=== PATIENT | female | born 1935 | race Caucasian/White ===

== ENCOUNTER 2018-04-06 18:56 | Inpatient (IN) ==
--- NOTE | 2018-04-06 19:31 | Emergency Department Note ---
Disposition Clinical Impression: Thoracic back pain Disposition: Still a Patient Condition: Fair Referrals: Elise Barry MD [Primary Care Provider] - Forms: ED Satisfaction Letter General Adult HPI - General Chief complaint: ED Back Pain/Injury Stated complaint: Fall Time Seen by Provider: 04/06/18 18:58 Source: patient, EMS Limitations: no limitations, altered mental status Nursing Notes Reviewed: Yes Vital Signs Reviewed: Yes - History of Present Illness HPI Narrative: 82 year old female presents for fall. Sister in law was helping her stand, lost control and patient fell backward. Patient states she hurt her back. Does not take a blood thinner. Denies any lightheadedness or dizziness before fall. Denies any chest pain or shortness of breath before fall. Denies loss of consciousness. Denies hitting her head. Denies headache, neck pain. reports that patient is unsteady on her feet and will fall backward if someone doesn't have good control of her. states that patient is not confused. Patient states that the middle of her mid-back is achy and sore /. Denies new muscle weakness or loss of sensation. Pain Scale: 10 - Related Data Previous Rx's Medication Instructions Recorded RX: Promethazine [Phenergan] 25 mg PO Q6HR PRN #20 tablet 06/14/15 RX: Ondansetron ODT [Zofran ODT] 4 mg SL Q6HR #10 tab.rapdis 08/13/15 LORazepam [Ativan] 1 mg PO BID PRN #60 tablet 10/05/15 RX: Artificial Tears SOLN [Akwa 1 drop BOTH EYES BID #1 bottle 10/05/15 Tears] RX: Gabapentin [Neurontin] 100 mg PO HS #30 capsule 10/05/15 RX: Lisinopril [Zestril] 5 mg PO DAILY tablet 10/05/15 RX: Mirtazapine [Remeron] 15 mg PO HS #30 tablet 10/05/15 Allergies Allergy/AdvReac Type Severity Reaction Status Date / Time Penicillins AdvReac See Verified 09/30/15 13:10 Comments Sulfa (Sulfonamide AdvReac See Verified 09/30/15 13:10 Antibiotics) Comments Constitutional: Denies: fever, chills Eyes: Denies: eye pain, eye discharge ENT ED: Denies: ear pain, throat pain Cardiovascular: Denies: chest pain, palpitations Respiratory: Denies: cough, dyspnea Gastrointestinal: Denies: abdominal pain, nausea Genitourinary: Denies: urgency, dysuria Musculoskeletal: Reports: back pain. Denies: neck pain Integumentary: Denies: rash, abrasion Neurological: Denies: headache, weakness Past Medical History - Past Medical History Medical history: Reports: fibromyalgia, osteoporosis, other Surgical history: Reports: cholecystectomy, hip replacement Psychiatric history: Reports: anxiety, depression - Social History Smoking Status: Never smoker Smokeless Tobacco Status: No Alcohol use: Reports: none Drug use: Reports: none Physical Exam - General Limitations: no limitations, altered mental status General appearance: in no apparent distress - Head Head exam: atraumatic, normocephalic - Eye Eye exam: Present: normal appearance, PERRL, EOMI - ENT ENT exam: normal oropharynx, mucous membranes moist - Neck Neck exam: Present: normal inspection - Chest Chest inspection: Present: normal inspection - Respiratory Respiratory exam: Present: normal lung sounds bilaterally. Absent: respiratory distress - Cardiovascular Cardiovascular exam: Present: regular rate, normal rhythm - Abdominal Exam Abdominal exam: Present: normal bowel sounds. Absent: Non-Tender - Extremities Exam Extremities exam: Present: normal inspection, other (tremor in feet bilaterally, chronic ). Absent: tenderness, pedal edema, joint swelling - Back Exam Back exam: Present: tenderness (Tender to thoracic spine and paraspinals bilaterally. No tenderness to cervical and lumbar spine. ) - Neurological Exam Neurological exam: Present: alert, oriented X3, CN II-XII intact. Absent: motor sensory deficit (Generalized weakness. Motor strength equal bilaterally. No loss of sensation. Finger nose test normal bilaterally. ) - Psychiatric Psychiatric exam: Present: normal affect, normal mood - Skin Skin exam: Present: warm, dry, intact, normal color, other (Ecchymoses on right arm, present prior to fall. Small abrasion to right dorsal hand. ) Course Course Narrative: 82 year old female presents for thoracic back pain after mechanical fall. History of osteoporosis. Patient is alert and oriented and hemodynamically stable. On exam, there is tenderness to palpation to thoracic spine and paraspinals bilaterally. There is no pain to palpation of cervical and lumbar spine. Will check XR thoracic. - Reevaluation(s) Reevaluation #1: XR thoracic shows age-indeterminate fracture of T12. Will obtain CT thoracic. Patient's pain is not improved with tylenol. Will provide fentanyl and zofran. Time: 20:42 Reevaluation #2: Will sign out to night team. Vital Signs Temperature 99.1 F 04/06/18 18:59 Pulse Rate 110 04/06/18 18:59 Respiratory Rate 16 04/06/18 18:59 Blood Pressure 174/93 04/06/18 18:59 O2 Sat by Pulse Oximetry 97 04/06/18 18:59 Temperature 99.1 F 04/06/18 18:59 Pulse Rate 110 04/06/18 18:59 Respiratory Rate 16 04/06/18 18:59 Blood Pressure 174/93 04/06/18 18:59 O2 Sat by Pulse Oximetry 97 04/06/18 18:59 Oxygen Delivery Oxygen Delivery Room Air Medical Decision Making - Medical Records Medical records reviewed: Yes I reviewed the patient's medical records. - Lab Data Lab results reviewed: Yes I reviewed the patient's lab results. - Radiology Data Radiology results reviewed: Yes I reviewed the patient's radiology results.
--- NOTE | 2018-04-06 19:45 | Emergency Department Note ---
Disposition Clinical Impression: Thoracic back pain Disposition: Still a Patient Condition: Fair Forms: ED Satisfaction Letter General Adult HPI - General Chief complaint: ED Back Pain/Injury Stated complaint: Fall Time Seen by Provider: 04/06/18 18:58 Source: patient, EMS Limitations: no limitations, altered mental status - History of Present Illness Pain Scale: 10 - Related Data Previous Rx's Medication Instructions Recorded RX: Promethazine [Phenergan] 25 mg PO Q6HR PRN #20 tablet 06/14/15 RX: Ondansetron ODT [Zofran ODT] 4 mg SL Q6HR #10 tab.rapdis 08/13/15 LORazepam [Ativan] 1 mg PO BID PRN #60 tablet 10/05/15 RX: Artificial Tears SOLN [[place]wa 1 drop BOTH EYES BID #1 bottle 10/05/15 Tears] RX: Gabapentin [Neurontin] 100 mg PO HS #30 capsule 10/05/15 RX: Lisinopril [Zestril] 5 mg PO DAILY tablet 10/05/15 RX: Mirtazapine [Remeron] 15 mg PO HS #30 tablet 10/05/15 Allergies Allergy/AdvReac Type Severity Reaction Status Date / Time Penicillins AdvReac See Verified 09/30/15 13:10 Comments Sulfa (Sulfonamide AdvReac See Verified 09/30/15 13:10 Antibiotics) Comments Constitutional: Denies: fever, chills Eyes: Denies: eye pain, eye discharge ENT ED: Denies: ear pain, throat pain Cardiovascular: Denies: chest pain, palpitations Respiratory: Denies: cough, dyspnea Gastrointestinal: Denies: abdominal pain, nausea Genitourinary: Denies: urgency, dysuria Musculoskeletal: Reports: back pain. Denies: neck pain Integumentary: Denies: rash, abrasion Neurological: Denies: headache, weakness Past Medical History - Past Medical History Medical history: Reports: fibromyalgia, osteoporosis, other Surgical history: Reports: cholecystectomy, hip replacement Psychiatric history: Reports: anxiety, depression - Social History Smoking Status: Never smoker Smokeless Tobacco Status: No Alcohol use: Reports: none Drug use: Reports: none Physical Exam - General Limitations: no limitations, altered mental status General appearance: in no apparent distress Course Vital Signs Temperature 99.1 F 04/06/18 18:59 Pulse Rate 110 04/06/18 18:59 Respiratory Rate 16 04/06/18 18:59 Blood Pressure 174/93 04/06/18 18:59 O2 Sat by Pulse Oximetry 97 04/06/18 18:59 Temperature 99.1 F 04/06/18 18:59 Pulse Rate 105 04/06/18 20:12 Respiratory Rate 16 04/06/18 20:12 Blood Pressure 177/100 04/06/18 20:12 O2 Sat by Pulse Oximetry 98 04/06/18 20:12 Oxygen Delivery Oxygen Delivery Room Air Attestation Statement - Attestation Attestation: I examined this patient and my medical decision-making was reviewed with the STUDENT AMBASSADOR/PA/Advanced Practice Nurse/Resident Physician. I agree with the documented findings, disposition and treatment plan as described except to the extent set forth below. I did speak the patient and did speak with the paramedics and I did see the patient immediately upon arrival the patient presents after she had a mechanical fall. This was not a syncopal episode. Does have thoracic pain and this will be further evaluated with imaging. Otherwise bright and alert and in no distress. 193
[2018-04-06] MEDS ORDERED: *HR* FentaNYL (PF) 100 MCG/2 ML VIAL IVP ONE (20:39)
[2018-04-06] MEDS ORDERED: Ondansetron 4 MG/2 ML VIAL IVP ONE (20:40)
--- NOTE | 2018-04-06 22:30 | Emergency Department Note ---
Disposition Clinical Impression: Thoracic back pain Qualifiers: Chronicity: acute Back pain laterality: midline Qualified Code(s): M54.6 - Pain in thoracic spine Thoracic compression fracture Qualifiers: Encounter type: initial encounter Fracture type: closed Qualified Code(s): S22.000A - Wedge compression fracture of unspecified thoracic vertebra, initial encounter for closed fracture Disposition: Admitted As Inpatient Condition: Fair Referrals: Elise Barry MD [Primary Care Provider] - Forms: ED Satisfaction Letter Time of Disposition: 22:29 General Adult HPI - General Chief complaint: ED Back Pain/Injury Stated complaint: Fall Time Seen by Provider: 04/06/18 18:58 Source: patient, EMS Limitations: no limitations, altered mental status - History of Present Illness Pain Scale: 10 - Related Data Previous Rx's Medication Instructions Recorded Promethazine [Phenergan] 25 mg PO Q6HR PRN #20 tablet 06/14/15 Ondansetron ODT [Zofran ODT] 4 mg SL Q6HR #10 tab.rapdis 08/13/15 Artificial Tears SOLN [Akwa Tears] 1 drop BOTH EYES BID #1 bottle 10/05/15 Gabapentin [Neurontin] 100 mg PO HS #30 capsule 10/05/15 LORazepam [Ativan] 1 mg PO BID PRN #60 tablet 10/05/15 Lisinopril [Zestril] 5 mg PO DAILY tablet 10/05/15 Mirtazapine [Remeron] 15 mg PO HS #30 tablet 10/05/15 Allergies Allergy/AdvReac Type Severity Reaction Status Date / Time Penicillins AdvReac See Verified 09/30/15 13:10 Comments Sulfa (Sulfonamide AdvReac See Verified 09/30/15 13:10 Antibiotics) Comments Constitutional: Denies: fever, chills Eyes: Denies: eye pain, eye discharge ENT ED: Denies: ear pain, throat pain Cardiovascular: Denies: chest pain, palpitations Respiratory: Denies: cough, dyspnea Gastrointestinal: Denies: abdominal pain, nausea Genitourinary: Denies: urgency, dysuria Musculoskeletal: Reports: back pain. Denies: neck pain Integumentary: Denies: rash, abrasion Neurological: Denies: headache, weakness Past Medical History - Past Medical History Medical history: Reports: fibromyalgia, osteoporosis, other Surgical history: Reports: cholecystectomy, hip replacement Psychiatric history: Reports: anxiety, depression - Social History Smoking Status: Never smoker Smokeless Tobacco Status: No Alcohol use: Reports: none Drug use: Reports: none Physical Exam - General Limitations: no limitations, altered mental status General appearance: in no apparent distress Course Vital Signs Temperature 99.1 F 04/06/18 18:59 Pulse Rate 110 04/06/18 18:59 Respiratory Rate 16 04/06/18 18:59 Blood Pressure 174/93 04/06/18 18:59 O2 Sat by Pulse Oximetry 97 04/06/18 18:59 Temperature 99.1 F 04/06/18 18:59 Pulse Rate 105 04/06/18 20:12 Respiratory Rate 16 04/06/18 20:12 Blood Pressure 177/100 04/06/18 20:12 O2 Sat by Pulse Oximetry 98 04/06/18 20:12 Oxygen Delivery Oxygen Delivery Room Air Medical Decision Making - MDM Narrative Medical decision making narrative: Patient was assigned out to me from Dr. Espinosa. Plan was to follow-up her CT scan of her thoracic spine. At this time, she has pinpoint tenderness along the T11-T12 region of her thoracic spine. She has no focal motor or sensory deficits. CT confirms that she has got a 40% compression fracture of T12 with a 5.5 mm posterior displacement of the superior endplate. I consulted with spine surgery. They will see the patient tomorrow in consultation. She will need to be admitted as she is having problems getting around due to the pain as well as her age and the is worried that she may fall again at home. She does not take blood thinners. She has no focal motor or sensory deficits. Attestation Statement - Attestation Attestation: I examined this patient and my medical decision-making was reviewed with the Resident Physician. I agree with the documented findings, disposition and treatment plan as described except to the extent set forth below.
[2018-04-06 23:23] LABS: Basophils % 0.4 %; Eosinophils % 0.5 %; Hematocrit 39.5 % (35.3-44.9); Hemoglobin 13.5 g/dL (11.5-15.4); Immature Granulocytes % 0.2 % (0-4); Lymphocytes # 1.5 K/mcL (0.6-4.6); Lymphocytes % 18.6 %; Mean Corpuscular HGB Conc 34.2 g/dL (31.6-35.5); Mean Corpuscular Hemoglobin 31.2 pg (28.0-33.3); Mean Corpuscular Volume 91.2 fL (83.0-100.0); Mean Platelet Volume 11.2 fL (9.4-12.4); Monocytes # 0.6 K/mcL (0.0-1.3); Monocytes % 6.8 %; Neutrophils # 6.1 K/mcL (1.6-8.9); Platelet Count 233 K/mcL (140-400); Red Blood Count 4.33 M/mcL (3.82-4.97); Red Cell Distribution Width 13.2 % (11.5-14.5); Segmented Neutrophils % 73.5 %
[2018-04-06 23:31] LABS: INR 1.1; Prothrombin Time 12.3 Seconds (9.4-12.1)
[2018-04-06 23:38] LABS: BUN/Creatinine Ratio 34 (6-26); Blood Urea Nitrogen 20 mg/dL (8-23); Calcium 9.2 mg/dL (8.6-10.3); Carbon Dioxide 23 mEq/L (23-29); Chloride 104 mEq/L (98-107); Glucose 107 mg/dL (70-105); Osmolality,Calculated 281 (280-300); Potassium 4.2 mEq/L (3.5-5.1); Sodium 134 mEq/L (136-145); eGFR For Non-African Americans > 60 (> 60)
[2018-04-07] MEDS ORDERED: Naloxone 0.4 MG/ML INJ IVP PRN (00:09)
[2018-04-07] MEDS ORDERED: OXYCODONE Oral CONC 10 MG/0.5 ML ORAL.SYG SL PRN (00:09)
[2018-04-07 03:31] LABS: Bilirubin,Urine Negative (Negative); Blood,Urine Negative (Negative); Clarity,Urine Clear (Clear); Color,Urine Dark Yellow (Yellow); Glucose,Urine (UA) Normal (Normal); Ketones,Urine Negative (Negative); Leukocyte Esterase,Urine Negative (Negative); Nitrite,Urine Negative (Negative); Protein,Urine Trace mg/dL (Neg-Trace); Specific Gravity,Urine 1.024 (1.010-1.025); Urobilinogen,Urine Normal (Normal)
[2018-04-07 03:32] LABS: Bacteria,Urine None Seen per hpf (None-Few); Hyaline Casts,Urine None Seen per lpf (None-Few); Squamous Epithelial Cell,Urine Many per lpf (None-Few); WBC,Urine 0-3 per hpf (0-3)
[2018-04-07] MEDS: 0.9 % Sodium Chloride 1,000 ML IVC SCH ×2 (03:51→17:07)
[2018-04-07] MEDS: Ketorolac 30 MG/ML VIAL IVP PRN (03:51)
[2018-04-07 05:16] LABS: Basophils % 0.6 %; Eosinophils # 0.1 K/mcL (0.0-0.6); Eosinophils % 1.4 %; Hematocrit 40.1 % (35.3-44.9); Hemoglobin 13.7 g/dL (11.5-15.4); Immature Granulocytes % 0.3 % (0-4); Lymphocytes # 1.8 K/mcL (0.6-4.6); Mean Corpuscular HGB Conc 34.2 g/dL (31.6-35.5); Mean Corpuscular Hemoglobin 31.1 pg (28.0-33.3); Mean Corpuscular Volume 90.9 fL (83.0-100.0); Mean Platelet Volume 11.2 fL (9.4-12.4); Monocytes # 0.6 K/mcL (0.0-1.3); Monocytes % 8.1 %; Neutrophils # 4.5 K/mcL (1.6-8.9); Platelet Count 230 K/mcL (140-400); Red Blood Count 4.41 M/mcL (3.82-4.97); Red Cell Distribution Width 13.2 % (11.5-14.5); Segmented Neutrophils % 63.6 %
[2018-04-07 05:35] LABS: Troponin I < 0.03 ng/mL (< 0.04)
[2018-04-07 05:39] LABS: Alanine Aminotransferase 21 Units/L (7-52); Albumin 3.8 g/dL (3.5-5.7); Albumin/Globulin Ratio 1.4 (1.1-2.2); Alkaline Phosphatase 91 Units/L (34-104); Aspartate Amino Transferase 27 Units/L (13-39); BUN/Creatinine Ratio 37 (6-26); Bilirubin,Total 0.7 mg/dL (0.3-1.0); Blood Urea Nitrogen 22 mg/dL (8-23); Calcium 9.1 mg/dL (8.6-10.3); Carbon Dioxide 22 mEq/L (23-29); Chloride 103 mEq/L (98-107); Globulin 2.8 g/dL (2.4-3.5); Glucose 102 mg/dL (70-105); Osmolality,Calculated 286 (280-300); Potassium 4.1 mEq/L (3.5-5.1); Sodium 136 mEq/L (136-145); Total Protein 6.6 g/dL (6.4-8.9); eGFR For Non-African Americans > 60 (> 60)
[2018-04-07] MEDS: *HR* Heparin 5,000 UNIT/ML VIAL SQ SCH ×3 (08:10→23:07)
--- NOTE | 2018-04-07 08:59 | Internal Med History&Physical ---
Date of Encounter: 04/07/18 Time of Encounter: 05:00 Internal Medicine - H&P: HPI Chief complaint: Fall History of present illness: Ms. Martinez is a 82 year old female with past medical history of dementia, hypertension and depression who presents after mechanical fall. Per report, her Sister in law was helping her stand when she lost control and patient fell backward. She denies any lightheadedness, dizziness, or chest pain before fall. Since then she reports mid back pain. Does not take a blood thinner aside from aspirin. Denies loss of consciousness. Denies hitting her head. Denies headache, neck pain. reports that patient is unsteady on her feet and h as a tendency to fall backward if someone doesn't have good control of her. He states that patient is not confused. Patient denies any focal motor or sensory deficits. CT confirms that she has got a 40% compression fracture of T12 with a 5.5 mm posterior displacement of the superior endplate. Spine surgery was consulted in the ED and they will see the patient tomorrow in consultation. Past Med Surg Social Fam HX - Past Medical History Medical history: fibromyalgia, osteoporosis, other Psychiatric history: anxiety, depression - Past Surgical History Surgical History: cholecystectomy, hip replacement Additional surgical history: Unsure of choley. Denies hip replacement - Social History Smoking Status: Never smoker Smokeless Tobacco Status: No Alcohol use: occasionally Drug use: none Internal Medicine - H&P: Meds ARIPiprazole [Abilify] 5 mg PO DAILY 04/06/18 [History] Aspirin [Adult Aspirin] 81 mg PO DAILY 04/06/18 [History] Citalopram Hydrobromide [Citalopram HBr] 30 mg PO DAILY 04/06/18 [History] Losartan Potassium [Cozaar] 50 mg PO DAILY 04/06/18 [History] Megestrol Acetate [Megace] 40 mg PO BID 04/06/18 [History] Pantoprazole Sodium [Protonix] 40 mg PO DAILY 04/06/18 [History] Allergy/AdvReac Type Severity Reaction Status Date / Time Penicillins AdvReac See Verified 09/30/15 13:10 Comments Sulfa (Sulfonamide AdvReac See Verified 09/30/15 13:10 Antibiotics) Comments All Systems PM: A 10-system review of systems was performed and is negative for pertinent findings except as documented above in the HPI. - Constitutional Constitutional: no chills, no fever(s), no night sweats - EENT Eyes: no change in vision, no discharge, no pain, no photophobia Ears: no ear discharge, no ear pain, no tinnitus Nose, mouth and throat: no dysphagia, no nasal discharge, no neck pain, no sore throat - Cardiovascular Cardiovascular ROS IM: no chest pain, no diaphoresis, no dyspnea, no lightheadedness, no palpitations, no syncope - Respiratory Respiratory: no cough, no dyspnea, no wheezing, no excessive phlegm production - Gastrointestinal Gastrointestinal: no abdominal pain, no diarrhea, no hematemesis, no hematochezia, no melena, no nausea, no vomiting - Genitourinary Genitourinary: no change in urinary stream, no dysuria, no flank pain, no hematuria - Musculoskeletal Musculoskeletal ROS IM: no numbness, no tingling - Integumentary Integumentary IM: no rash, no unusual bruising - Neurological Neurological ROS: no confusion, no convulsions, no focal weakness, no numbness, no tingling, no tremor(s) - Hematologic/Lymphatic Hematologic/Lymphatic: no easy bruising - Constitutional Vitals: Temp Pulse Resp BP Pulse Ox 97.5 F L 96 16 161/78 93 04/07/18 06:28 04/07/18 06:28 04/07/18 06:28 04/07/18 06:28 04/07/18 06:28 Exam: General: Alert and oriented 2 lying in bed in no acute distress Skin:Normal color, no rash, no lesions. HEENT:EOM, pupils equal, round and reactive. Cardiovascular:Normal S1 & S2, no rubs, murmurs or gallops. No JVD. Pulse regular. Lungs:Normal breath sounds, no wheezes or crackles. Musculoskeletal: Point tenderness to palpation along the spine at the mid posterior thorax. Abdomen:Soft, non-tender, no rigidity. Extremities:No deformity, no edema or tenderness, no joint swelling or clubbing. Neurological:Normal cognition and motor skills. Pulses:Carotid and radial pulses normal +2. Rest of the physical exam is non contributory Internal Med - H&P Results - Labs CBC & Chem 7: 04/07/18 04:22 04/07/18 04:22 Labs: Short CBC 04/06/18 04/07/18 Range/Units 22:59 04:22 WBC 8.3 7.0 (4.3-11.1) K/mcL Hgb 13.5 13.7 (11.5-15.4) g/dL Hct 39.5 40.1 (35.3-44.9) % Plt Count 233 230 (140-400) K/mcL Neutrophils # 6.1 4.5 (1.6-8.9) K/mcL BMP 04/06/18 04/07/18 22:59 04:22 Sodium 134 L 136 Potassium 4.2 4.1 Chloride 104 103 Carbon Dioxide 23 22 L BUN 20 22 Creatinine 0.59 L 0.59 L Glucose 107 H 102 Calcium 9.2 9.1 Cardiac Enzymes 04/07/18 Range/Units 04:22 Troponin I < 0.03 (< 0.04) ng/mL Liver Function 04/07/18 Range/Units 04:22 Total Bilirubin 0.7 (0.3-1.0) mg/dL AST 27 (13-39) Units/L ALT 21 (7-52) Units/L Alkaline Phosphatase 91 (34-104) Units/L Albumin 3.8 (3.5-5.7) g/dL Urine 04/07/18 Range/Units 03:00 Urine Color Dark Yellow (Yellow) Urine Clarity Clear (Clear) Urine pH 6.0 (5.0-8.0) pH Units Ur Specific [place] 1.024 (1.010-1.025) Urine Protein Trace (Neg-Trace) mg/dL Urine Glucose (UA) Normal (Normal) mg/dL - Impressions ITS Impressions Thoracic Spine X-Ray 04/06/18 19:22 IMPRESSION: 1. Age-indeterminate compression fracture of T12. No significant retropulsion. Spinous alignment is within normal limits. D/ / Paresh Chavis MD / Paresh Chavis MD Interpreting Provider: Paresh Chavis MD Thoracic Spine CT 04/06/18 20:34 IMPRESSION: Superior endplate compression fracture of T12 with approximately 40% loss of vertebral body height. Appearance of the fracture suggests that this is an acute compression fracture. 5.5 mm of posterior displacement of superior endplate fracture fragments causing moderate canal narrowing. Mild multilevel disc degenerative changes. D/ / 04/06/2018 22:12:55 Eugenio Savage MD / luba Interpreting Provider: Eugenio Savage MD - Assessment and plan (1) Thoracic compression fracture Current Visit: Yes Status: Acute Assessment and plan: Patient presents with compression fracture of T12 after mechanical fall. Orthopedic surgery was consulted and will see patient this morning. We will continue with pain management and keep patient nothing by mouth until further evaluation. Qualifiers: Encounter type: initial encounter Fracture type: closed Qualified Code(s): S22.000A - Wedge compression fracture of unspecified thoracic vertebra, initial encounter for closed fracture (2) Depression Current Visit: No Status: Chronic Assessment and plan: Continue home medications Qualifiers: Depression Type: unspecified Qualified Code(s): F32.9 - Major depressive disorder, single episode, unspecified (3) Mild cognitive impairment Current Visit: No Status: Chronic (4) DVT prophylaxis Current Visit: Yes Status: Acute Assessment and plan: Subcutaneous heparin - Time Spent With Patient Total time spent is greater than 50% in coordination of care (as documented) at patient's floor/unit and/or counseling patient:
--- NOTE | 2018-04-07 12:28 | Event Note ---
Date of Encounter: 04/07/18 Time of Encounter: 10:30 H&P reviewed. 82-year-old female with history of osteoporosis is admitted after an episode of mechanical fall. Landed backward and suffered T12 compression fracture with 5.5mm posterior displacement and moderate canal narrowing demonstrated on the imaging studies done overnight. Exam did not reveal any lower limb weakness or numbness. Pain management, we will follow up on orthopedic consults (which was called in from the ED last night). Keep NPO till then.
[2018-04-07] MEDS: ARIPiprazole 5 MG TABLET PO SCH (17:06)
[2018-04-07] MEDS: Aspirin Enteric Coated 81 MG Tablet PO SCH (17:07)
[2018-04-07] MEDS ORDERED: *HR* Metoprolol 5 MG/5 ML VIAL IVP ONE ×3 (18:42→22:53)
[2018-04-07] MEDS ORDERED: *HR* LORazepam 2 MG/ML VIAL IVP ONE (18:42)
--- NOTE | 2018-04-07 19:42 | Pain Management Consultation ---
Date of Encounter: 04/07/18 Time of Encounter: 18:41 Assessment and Plan (1) Compression fracture of T12 vertebra Current Visit: Yes Status: Acute The patient experienced a fall from standing yesterday and CT scan shows compression deformity of T12. Recommend the followin. Oral analgesics. 2. Back bracing with TLSO brace. 3. Physical therapy/occupational therapy consult to ascertain her functional capacity. Her baseline is relatively low functioning, requiring him with support for all activities of daily living. If the patient can sit on the side of the bed, eat, and ambulate to the bathroom with little pain, there is little need for surgery at this moment. 4. recommend discharge to rehabilitation Center if function is at baseline and pain can be easily controlled with oral analgesics and lifestyle modification, finding a comfortable position. 5. I will have my office at her on to my clinic schedule for follow-up in one week so that we can monitor her progress. The assessment and plan as outlined above was discussed with the patient and/or family members who expressed understanding and agreement. All questions were ans wered. History of Present Illness Chief complaint: back pain HPI: Ms. Martinez is a 82 year old female who expressed a fall yesterday. The patient lives at home with her . The patient is not mobile at home but relies on her for all activities of daily living. The patient was in her home. She stood up to ambulate with a rolling walker with family members at her side, and she fell backwards. She expressed a sudden onset of pain in the center of her back. She denied pain traveling into her legs. Pain at the time of the fall was 10/10. Pain now is 0/10 while lying in bed. Pain seems to spread across her lower back just below the bra strap. Pain described as sharp. The patient is comfortable while lying down. She has not attempted to sit up or stand. Past Med Surg Social Fam HX - Past Medical History Medical history: fibromyalgia, osteoporosis, other Psychiatric history: anxiety, depression - Past Surgical History Surgical History: cholecystectomy, hip replacement Additional surgical history: Unsure of choley. Denies hip replacement - Social History Smoking Status: Never smoker Smokeless Tobacco Status: No Alcohol use: occasionally Drug use: none Medications and Allergies ARIPiprazole [Abilify] 5 mg PO DAILY 04/06/18 [History] Aspirin [Adult Aspirin] 81 mg PO DAILY 04/06/18 [History] Citalopram Hydrobromide [Citalopram HBr] 30 mg PO DAILY 04/06/18 [History] Losartan Potassium [Cozaar] 50 mg PO DAILY 04/06/18 [History] Megestrol Acetate [Megace] 40 mg PO BID 04/06/18 [History] Pantoprazole Sodium [Protonix] 40 mg PO DAILY 04/06/18 [History] Allergy/AdvReac Type Severity Reaction Status Date / Time Penicillins AdvReac See Verified 09/30/15 13:10 Comments Sulfa (Sulfonamide AdvReac See Verified 09/30/15 13:10 Antibiotics) Comments Review of Systems - Constitutional Constitutional ROS IM: no photophobia, no phonophobia, no daytime sleepiness, no fever(s), no stops breathing during sleep - EENT Nose, mouth and throat: no headache(s), no neck pain, no neck trauma - Cardiovascular Cardiovascular ROS: no chest pain, no leg edema, no lightheadedness - Respiratory Respiratory: no pain on inspiration, no pain with cough - Gastrointestinal Gastrointestinal: no abdominal pain, no constipation, no diarrhea, no heartburn - Genitourinary Genitourinary ROS: no difficulty urinating, no flank pain, no urinary hesitancy - Musculoskeletal Musculoskeletal ROS: no muscle weakness, no numbness, no radiating pain into limb, no tingling - Integumentary Integumentary: no erythema, no lesions, no swelling - Neurological Neurological ROS: no abnormal gait, no behavioral changes, no focal weakness, no radicular pain - Psychiatric Psychiatric general: no anxiety, no confusion, no depression - Hematologic/Lymphatic Hematologic/Lymphatic pediatric: no easy bleeding, no easy bruising Physical Exam Initial Vital Signs Temp Pulse Resp BP Pulse Ox 99.1 F 110 16 174/93 97 04/06/18 18:59 04/06/18 18:59 04/06/18 18:59 04/06/18 18:59 04/06/18 18:59 - Additional Findings EYES:: pupils equal and round, no myosis. SKIN:: no areas of echymoses or petechiae CARDIOVASCULAR:: no lower limb edema. no palpable cords in calf muscles PULMONARY:: normal respiratory rate GASTROINTESTINAL:: soft, nontender MUSCULOSKELETAL PALPATION:: paraspinous of spinous processes is nontender in thoracolumbar spine no pain with percussion of spine ROM:: good ROM with turning in bed at thoracolumbar junction STRENGTH:: RIGHT knee extension 4/5 :: LEFT knee extension 4/5 RIGHT knee flexion 4/5 :: LEFT knee flexion 4/5 RIGHT ankle dorsiflexion 5/5 :: LEFT ankle dorsiflexion 5/5 RIGHT ankle plantarflexion 4/5 :: LEFT ankle plantarflexion 5/5 RIGHT great toe dorsiflexion 3/5 :: LEFT great toe dorsiflexion 5/5 RIGHT great toe plantarflexion 4/5 :: LEFT great toe plantarflexion 5/5 NEUROLOGIC SENSATION:: hypesthesia is not noted in lower extremity dermatomes. PSYCHIATRIC:: ORIENTATION:: awake and alert. INSIGHT:: good awareness of illness. oriented to person. AFFECT:: pleasant. Radiology Images Viewed By Me:: March 2018 CT scan of the thoracic spine shows a T12 compression deformity involving the junction between the pedicle and vertebral body on the right. There is 5 mm retropulsion of superior endplate into the central canal. white count nml now. I have reviewed and agree with information documented in the scribed documentation, ROS, patient medications, allergies, medical history, surgical history, social history, and family history. Results - Labs 04/07/18 04:22 04/07/18 04:22 Abnormal lab results PT 12.3 Seconds (9.4-12.1) H 04/06/18 22:59 Carbon Dioxide 22 mEq/L (23-29) L 04/07/18 04:22 Creatinine 0.59 mg/dL (0.60-1.20) L 04/07/18 04:22 BUN/Creatinine Ratio 37 (6-26) H 04/07/18 04:22 Urine Microscopic RBC 3-5 per hpf (0-3) H 04/07/18 03:00 Ur Squamous Epith Cells Many per lpf (None-Few) H 04/07/18 03:00 Diabetes panel 04/06/18 04/07/18 Range/Units 22:59 04:22 Sodium 134 L 136 (136-145) mEq/L Potassium 4.2 4.1 (3.5-5.1) mEq/L Chloride 104 103 (98-107) mEq/L Carbon Dioxide 23 22 L (23-29) mEq/L BUN 20 22 (8-23) mg/dL Creatinine 0.59 L 0.59 L (0.60-1.20) mg/dL Glucose 107 H 102 (70-105) mg/dL Calcium 9.2 9.1 (8.6-10.3) mg/dL AST 27 (13-39) Units/L ALT 21 (7-52) Units/L Alkaline Phosphatase 91 (34-104) Units/L Albumin 3.8 (3.5-5.7) g/dL Calcium panel 04/06/18 04/07/18 Range/Units 22:59 04:22 Calcium 9.2 9.1 (8.6-10.3) mg/dL Albumin 3.8 (3.5-5.7) g/dL Pituitary panel 04/06/18 04/07/18 Range/Units 22:59 04:22 Sodium 134 L 136 (136-145) mEq/L Potassium 4.2 4.1 (3.5-5.1) mEq/L Chloride 104 103 (98-107) mEq/L Carbon Dioxide 23 22 L (23-29) mEq/L BUN 20 22 (8-23) mg/dL Creatinine 0.59 L 0.59 L (0.60-1.20) mg/dL Glucose 107 H 102 (70-105) mg/dL Calcium 9.2 9.1 (8.6-10.3) mg/dL Adrenal panel 04/06/18 04/07/18 Range/Units 22:59 04:22 Sodium 134 L 136 (136-145) mEq/L Potassium 4.2 4.1 (3.5-5.1) mEq/L Chloride 104 103 (98-107) mEq/L Carbon Dioxide 23 22 L (23-29) mEq/L BUN 20 22 (8-23) mg/dL Creatinine 0.59 L 0.59 L (0.60-1.20) mg/dL Glucose 107 H 102 (70-105) mg/dL Calcium 9.2 9.1 (8.6-10.3) mg/dL Total Bilirubin 0.7 (0.3-1.0) mg/dL AST 27 (13-39) Units/L ALT 21 (7-52) Units/L Alkaline Phosphatase 91 (34-104) Units/L Albumin 3.8 (3.5-5.7) g/dL All other labs normal. Consult Discharge Plan - Plan Referrals: Elise Barry MD [Primary Care Provider] -
[2018-04-08] MEDS ORDERED: *HR* Metoprolol 5 MG/5 ML VIAL IVP ONE (03:44)
[2018-04-08] MEDS ORDERED: OXYCODONE Oral CONC 10 MG/0.5 ML ORAL.SYG SL PRN (07:57)
[2018-04-08] MEDS: Aspirin Enteric Coated 81 MG Tablet PO SCH (08:59)
[2018-04-08] MEDS: ARIPiprazole 5 MG TABLET PO SCH (08:59)
[2018-04-08] MEDS ORDERED: *HR* LORazepam 2 MG/ML VIAL IM STA (09:34)
[2018-04-08] MEDS: *HR* Heparin 5,000 UNIT/ML VIAL SQ SCH ×2 (09:49→18:50)
--- NOTE | 2018-04-08 11:33 | Internal Med Progress Note ---
Hospitalist Progress Note - Encounter Date of Encounter: 04/08/18 Time of Encounter: 10:20 - Subjective Interval History: Appears to have intermittent episodes of confusion, denies any focal complaints other than back pain however. Denies chest pain, shows of breath, or palpitation. - Exam Vitals: Temp Pulse Resp BP Pulse Ox 97.5 F L 108 24 130/78 92 04/08/18 10:49 04/08/18 10:49 04/08/18 10:49 04/08/18 10:49 04/08/18 10:49 Exam: General: Alert and oriented 2, masked facies, anxious-looking Cardiovascular:Normal S1 & S2, borderline tachycardia Lungs:Normal breath sounds, no wheezes or crackles. Musculoskeletal: Point tenderness to palpation along the spine at the mid posterior thorax. Abdomen:Soft, non-tender, no rigidity. Neurological: tremor of the both extremities and R LE noted - Assessment and Plan (1) Thoracic compression fracture Current Visit: Yes Status: Acute Assessment and Plan: Patient presents with compression fracture of T12 after mechanical fall. appreciate input from pain mx, for TLSO brace and oral analgesics PT/OT SW for placement (2) Hypertension Current Visit: Yes Status: Chronic Assessment and Plan: appears to have moments of agitation/confusion associated with tachycardia and HTN antipsychotics/anxiolytics as below resume home meds and add coreg as well (3) Mild cognitive impairment Current Visit: No Status: Chronic Assessment and Plan: along with Parkinsonian features ?Lewy-body dementia episodes of confusion/anxiety noted during her stay will speak to pt's for more history PRN ativan/haldol, resume home antipsychotics will consider increasing abilify to 10mg (4) Depression Current Visit: No Status: Chronic Assessment and Plan: Continue home medications (5) DVT prophylaxis Current Visit: Yes Status: Acute Assessment and Plan: Subcutaneous heparin - Time Spent with Patient Total time spent is greater than 50% in coordination of care (as documented) at patient's floor/unit and/or counseling patient: Plan of Care Discussed with: nurse Internal Medicine: Result - Labs CBC & Chem 7: 04/07/18 04:22 04/07/18 04:22 - ABG Interpretation ABG results: PT/INR, D-dimer PT 12.3 Seconds (9.4-12.1) H 04/06/18 22:59 Consult Discharge Plan - Plan Referrals: Elise Barry MD [Primary Care Provider] - (1) Thoracic compression fracture Qualifiers: Encounter type: initial encounter Fracture type: closed Qualified Code(s): S22.000A - Wedge compression fracture of unspecified thoracic vertebra, initial encounter for closed fracture (2) Hypertension Qualifiers: Hypertension type: unspecified Qualified Code(s): I10 - Essential (primary) hypertension (4) Depression Qualifiers: Depression Type: unspecified Qualified Code(s): F32.9 - Major depressive disorder, single episode, unspecified
--- NOTE | 2018-04-08 22:57 | Electrocardiograph Report ---
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
[2018-04-09] MEDS: *HR* Heparin 5,000 UNIT/ML VIAL SQ SCH ×4 (00:28→23:24)
--- NOTE | 2018-04-09 10:17 | Internal Med Progress Note ---
Hospitalist Progress Note - Encounter Date of Encounter: 04/09/18 Time of Encounter: 09:20 - Subjective Interval History: Episodes of confusion seem to have lessened. No significant back pain reported. Appetite continues to be poor which she apparently has had for a long time according to the spouse. - Exam Vitals: Temp Pulse Resp BP Pulse Ox 99.1 F 97 16 137/76 93 04/09/18 06:40 04/09/18 06:40 04/09/18 06:40 04/09/18 06:40 04/09/18 06:40 Exam: General: Alert and oriented 2 lying in bed in no acute distress Cardiovascular:Normal S1 & S2, no rubs, murmurs or gallops. No JVD. Pulse regular. Lungs:Normal breath sounds, no wheezes or crackles. Musculoskeletal: Point tenderness to palpation along the spine at the mid posterior thorax. Abdomen:Soft, non-tender, no rigidity. - Assessment and Plan (1) Thoracic compression fracture Current Visit: Yes Status: Acute Assessment and Plan: Patient presents with compression fracture of T12 after mechanical fall. appreciate input from pain mx, for TLSO brace and oral analgesics PT/OT SW for placement (2) Hypertension Current Visit: Yes Status: Chronic Assessment and Plan: resume home meds and coreg added as well, better controlled (3) Mild cognitive impairment Current Visit: No Status: Chronic Assessment and Plan: along with Parkinsonian features ?Lewy-body dementia episodes of confusion/anxiety noted during her stay spoke to the at length, appears to be close to her baseline home antipsychotics resumed, abilify was recently decreased back to 5mg QD due to increasing extra-pyramidal symptoms according to the spouse frequent reorientation (4) Depression Current Visit: No Status: Chronic Assessment and Plan: Continue home medications (5) DVT prophylaxis Current Visit: Yes Status: Acute Assessment and Plan: Subcutaneous heparin - Time Spent with Patient Total time spent is greater than 50% in coordination of care (as documented) at patient's floor/unit and/or counseling patient: Plan of Care Discussed with: nurse Internal Medicine: Result - Labs CBC & Chem 7: 04/07/18 04:22 04/07/18 04:22 - ABG Interpretation ABG results: PT/INR, D-dimer PT 12.3 Seconds (9.4-12.1) H 04/06/18 22:59 Consult Discharge Plan - Plan Referrals: Elise Barry MD [Primary Care Provider] - (1) Thoracic compression fracture Qualifiers: Encounter type: initial encounter Fracture type: closed Qualified Code(s): S22.000A - Wedge compression fracture of unspecified thoracic vertebra, initial encounter for closed fracture (2) Hypertension Qualifiers: Hypertension type: unspecified Qualified Code(s): I10 - Essential (primary) hypertension (4) Depression Qualifiers: Depression Type: unspecified Qualified Code(s): F32.9 - Major depressive disorder, single episode, unspecified
[2018-04-09] MEDS: ARIPiprazole 5 MG TABLET PO SCH (11:03)
[2018-04-09] MEDS: Aspirin Enteric Coated 81 MG Tablet PO SCH (11:03)
[2018-04-09] MEDS: Ketorolac 30 MG/ML VIAL IVP PRN (17:47)
[2018-04-10 05:40] LABS: Mean Corpuscular HGB Conc 33.6 g/dL (31.6-35.5); Mean Corpuscular Hemoglobin 30.9 pg (28.0-33.3); Mean Corpuscular Volume 92.1 fL (83.0-100.0); Mean Platelet Volume 11.4 fL (9.4-12.4); Platelet Count 185 K/mcL (140-400); Red Blood Count 3.91 M/mcL (3.82-4.97); Red Cell Distribution Width 13.2 % (11.5-14.5)
[2018-04-10 05:46] LABS: Hemoglobin 12.1 g/dL (11.5-15.4)
[2018-04-10 05:52] LABS: BUN/Creatinine Ratio 53 (6-26); Blood Urea Nitrogen 27 mg/dL (8-23); Calcium 8.9 mg/dL (8.6-10.3); Carbon Dioxide 25 mEq/L (23-29); Chloride 106 mEq/L (98-107); Glucose 98 mg/dL (70-105); Osmolality,Calculated 287 (280-300); Potassium 3.7 mEq/L (3.5-5.1); Sodium 136 mEq/L (136-145); eGFR For Non-African Americans > 60 (> 60)
[2018-04-10] MEDS: Aspirin Enteric Coated 81 MG Tablet PO SCH (08:41)
[2018-04-10] MEDS: ARIPiprazole 5 MG TABLET PO SCH (08:42)
[2018-04-10] MEDS: *HR* Heparin 5,000 UNIT/ML VIAL SQ SCH ×2 (08:44→15:49)
--- NOTE | 2018-04-10 10:58 | Internal Med Progress Note ---
Hospitalist Progress Note - Encounter Date of Encounter: 04/10/18 Time of Encounter: 10:15 - Subjective Interval History: Appears to be more oriented today, denies any significant back pain, LE weakness/numbness. - Exam Vitals: Temp Pulse Resp BP Pulse Ox 98.1 F 85 16 146/74 95 04/10/18 06:36 04/10/18 06:36 04/10/18 06:36 04/10/18 06:36 04/10/18 06:36 Exam: General: Alert and oriented 2 lying in bed in no acute distress Cardiovascular:Normal S1 & S2, no rubs, murmurs or gallops. No JVD. Pulse regular. Lungs:Normal breath sounds, no wheezes or crackles. Musculoskeletal: Point tenderness to palpation along the spine at the mid posterior thorax. Abdomen:Soft, non-tender, no rigidity. - Assessment and Plan (1) Thoracic compression fracture Current Visit: Yes Status: Acute Assessment and Plan: Patient presents with compression fracture of T12 after mechanical fall. appreciate input from pain mx, PT/OT on hold till TLSO brace fitting continue oral analgesics SW for placement (2) Hypertension Current Visit: Yes Status: Chronic Assessment and Plan: better controlled with the addition of coreg to her home regime, continue (3) Mild cognitive impairment Current Visit: No Status: Chronic Assessment and Plan: along with Parkinsonian features ?Lewy-body dementia episodes of confusion/anxiety noted during her stay spoke to the at length, appears to be close to her baseline home antipsychotics resumed, abilify was recently decreased back to 5mg QD due to increasing extra-pyramidal symptoms according to the spouse frequent reorientation (4) Depression Current Visit: No Status: Chronic Assessment and Plan: Continue home medications (5) DVT prophylaxis Current Visit: Yes Status: Acute Assessment and Plan: Subcutaneous heparin - Time Spent with Patient Total time spent is greater than 50% in coordination of care (as documented) at patient's floor/unit and/or counseling patient: Plan of Care Discussed with: case management Internal Medicine: Result - Labs CBC & Chem 7: 04/10/18 04:57 04/10/18 04:57 Labs: Short CBC 04/10/18 Range/Units 04:57 WBC 5.7 (4.3-11.1) K/mcL Hgb 12.1 D (11.5-15.4) g/dL Hct 36.0 (35.3-44.9) % Plt Count 185 (140-400) K/mcL BMP 04/10/18 04:57 Sodium 136 Potassium 3.7 Chloride 106 Carbon Dioxide 25 BUN 27 H Creatinine 0.51 L Glucose 98 Calcium 8.9 - ABG Interpretation ABG results: PT/INR, D-dimer PT 12.3 Seconds (9.4-12.1) H 04/06/18 22:59 Consult Discharge Plan - Plan Referrals: Elise Barry MD [Primary Care Provider] - (1) Thoracic compression fracture Qualifiers: Encounter type: initial encounter Fracture type: closed Qualified Code(s): S22.000A - Wedge compression fracture of unspecified thoracic vertebra, initial encounter for closed fracture (2) Hypertension Qualifiers: Hypertension type: unspecified Qualified Code(s): I10 - Essential (primary) hypertension (4) Depression Qualifiers: Depression Type: unspecified Qualified Code(s): F32.9 - Major depressive disorder, single episode, unspecified
--- NOTE | 2018-04-10 13:22 | Pain Management Consultation ---
Date of Encounter: 04/10/18 Time of Encounter: 13:19 Assessment and Plan (1) Compression fracture of T12 vertebra Current Visit: Yes Status: Acute The patient is starting to recover from an acute T12 compression fracture. Recommend the followin. Oral analgesics. 2. Back bracing with TLSO brace. She can wear the brace when up in bed or out of bed. Does not have to wear it while supine or sleeping. 3. Physical therapy/occupational therapy consult to treat pain and ascertain her functional capacity. If the patient can sit on the side of the bed, eat, and ambulate to the bathroom with little pain, there is little need for surgery at this moment. 4. Recommend discharge to rehabilitation center if function is at baseline and pain can be easily controlled with oral analgesics and lifestyle modification, finding a comfortable position. 5. I will have my office add her on to my clinic schedule for follow-up in one to two weeks so that we can monitor her progress. History of Present Illness Chief complaint: back pain HPI: Ms. Martinez is a 82 year old female who is admitted due to recent fall and compression fracture related pain in her back. She is able to sit up in bed and eat comfortably without much pain. She is at her usual level of function which is sedentary. When she moves around in bed, the pain does go to 10/10. She describes the pain as a sharp sensation located in the center of her back approximately where her bra strap would be. She denies any radiating pain into her legs or around her chest. She denies any abdominal pain. in the room states that the patient seems like she is doing well today. She was able to sleep throughout the night without any issues. says that the patient lives a sedentary lifestyle and relies heavily on others for any activity including eating, bathing, and using the bathroom. Past Med Surg Social Fam HX - Past Medical History Medical history: fibromyalgia, osteoporosis, other Psychiatric history: anxiety, depression - Past Surgical History Surgical History: cholecystectomy, hip replacement Additional surgical history: Unsure of addy. Denies hip replacement - Social History Smoking Status: Never smoker Smokeless Tobacco Status: No Alcohol use: occasionally Drug use: none Medications and Allergies ARIPiprazole [Abilify] 5 mg PO DAILY 04/06/18 [History] Aspirin [Adult Aspirin] 81 mg PO DAILY 04/06/18 [History] Citalopram Hydrobromide [Citalopram HBr] 30 mg PO DAILY 04/06/18 [History] Losartan Potassium [Cozaar] 50 mg PO DAILY 04/06/18 [History] Megestrol Acetate [Megace] 40 mg PO BID 04/06/18 [History] Pantoprazole Sodium [Protonix] 40 mg PO DAILY 04/06/18 [History] Allergy/AdvReac Type Severity Reaction Status Date / Time Penicillins AdvReac See Verified 09/30/15 13:10 Comments Sulfa (Sulfonamide AdvReac See Verified 09/30/15 13:10 Antibiotics) Comments Review of Systems - Constitutional Constitutional ROS IM: no photophobia, no phonophobia, no daytime sleepiness, no fever(s), no stops breathing during sleep - EENT Nose, mouth and throat: no headache(s), no neck pain, no neck trauma - Cardiovascular Cardiovascular ROS: no chest pain, no leg edema, no lightheadedness - Respiratory Respiratory: no pain on inspiration, no pain with cough - Gastrointestinal Gastrointestinal: no abdominal pain, no constipation, no diarrhea, no heartburn - Genitourinary Genitourinary ROS: no difficulty urinating, no flank pain, no urinary hesitancy - Musculoskeletal Musculoskeletal ROS: no muscle weakness, no numbness, no radiating pain into limb, no tingling - Integumentary Integumentary: no erythema, no lesions, no swelling - Neurological Neurological ROS: no abnormal gait, no behavioral changes, no focal weakness, no radicular pain - Psychiatric Psychiatric general: no anxiety, no confusion, no depression - Hematologic/Lymphatic Hematologic/Lymphatic pediatric: no easy bleeding, no easy bruising Physical Exam Initial Vital Signs Temp Pulse Resp BP Pulse Ox 99.1 F 110 16 174/93 97 04/06/18 18:59 04/06/18 18:59 04/06/18 18:59 04/06/18 18:59 04/06/18 18:59 - Respiratory normal respiratory effort - Additional Findings EYES:: pupils equal and round, no myosis. SKIN:: no areas of echymoses or petechiae CARDIOVASCULAR:: no lower limb edema MUSCULOSKELETAL ROM:: reduced in lumbar spine pain with palpation of thoracolumbar junction in midline. NEUROLOGIC SENSATION:: hypesthesia is not noted in lower extremity dermatomes. PSYCHIATRIC:: ORIENTATION:: awake and alert. INSIGHT:: good awareness of illness. AFFECT:: pleasant. LABS: Normal white blood cell count and platelet count, GFR low. I have reviewed and agree with information documented in the scribed documentation, ROS, patient medications, allergies, medical history, surgical history, social history, and family history. Results - Labs 04/10/18 04:57 04/10/18 04:57 Abnormal lab results PT 12.3 Seconds (9.4-12.1) H 04/06/18 22:59 BUN 27 mg/dL (8-23) H 04/10/18 04:57 Creatinine 0.51 mg/dL (0.60-1.20) L 04/10/18 04:57 BUN/Creatinine Ratio 53 (6-26) H 04/10/18 04:57 POC Glucose 136 mg/dL (70-99) H 04/08/18 09:28 Urine Microscopic RBC 3-5 per hpf (0-3) H 04/07/18 03:00 Ur Squamous Epith Cells Many per lpf (None-Few) H 04/07/18 03:00 Diabetes panel 04/10/18 Range/Units 04:57 Sodium 136 (136-145) mEq/L Potassium 3.7 (3.5-5.1) mEq/L Chloride 106 (98-107) mEq/L Carbon Dioxide 25 (23-29) mEq/L BUN 27 H (8-23) mg/dL Creatinine 0.51 L (0.60-1.20) mg/dL Glucose 98 (70-105) mg/dL Calcium 8.9 (8.6-10.3) mg/dL Calcium panel 04/10/18 Range/Units 04:57 Calcium 8.9 (8.6-10.3) mg/dL Pituitary panel 04/10/18 Range/Units 04:57 Sodium 136 (136-145) mEq/L Potassium 3.7 (3.5-5.1) mEq/L Chloride 106 (98-107) mEq/L Carbon Dioxide 25 (23-29) mEq/L BUN 27 H (8-23) mg/dL Creatinine 0.51 L (0.60-1.20) mg/dL Glucose 98 (70-105) mg/dL Calcium 8.9 (8.6-10.3) mg/dL Adrenal panel 04/10/18 Range/Units 04:57 Sodium 136 (136-145) mEq/L Potassium 3.7 (3.5-5.1) mEq/L Chloride 106 (98-107) mEq/L Carbon Dioxide 25 (23-29) mEq/L BUN 27 H (8-23) mg/dL Creatinine 0.51 L (0.60-1.20) mg/dL Glucose 98 (70-105) mg/dL Calcium 8.9 (8.6-10.3) mg/dL All other labs normal. Consult Discharge Plan - Plan Referrals: Elise Barry MD [Primary Care Provider] -
[2018-04-10] MEDS: Ketorolac 30 MG/ML VIAL IVP PRN (22:02)
[2018-04-11] MEDS: *HR* Heparin 5,000 UNIT/ML VIAL SQ SCH ×2 (00:35→08:58)
[2018-04-11 06:36] VITALS: BP 143/78
[2018-04-11] MEDS: ARIPiprazole 5 MG TABLET PO SCH (08:58)
[2018-04-11] MEDS: Aspirin Enteric Coated 81 MG Tablet PO SCH (08:58)
--- NOTE | 2018-04-11 16:14 | Discharge Summary ---
- NOTES TO OUTPATIENT PROVIDER Notes to Outpatient Provider: f/u with orthopedics within 2 weeks. Date of Encounter: 04/11/18 Time of Encounter: 15:24 - Discharge Diagnosis (1) Depression Priority: Secondary Status: Chronic Qualifiers: Depression Type: unspecified Qualified Code(s): F32.9 - Major depressive disorder, single episode, unspecified (2) Mild cognitive impairment Priority: Secondary Status: Chronic (3) Thoracic compression fracture Priority: Primary Status: Acute Assessment and Plan: Patient presents with compression fracture of T12 after mechanical fall. pain control. dc to rehab today. Qualifiers: Encounter type: initial encounter Fracture type: closed Qualified Code(s): S22.000A - Wedge compression fracture of unspecified thoracic vertebra, initial encounter for closed fracture (4) DVT prophylaxis Priority: Primary Status: Acute (5) Hypertension Priority: Secondary Status: Chronic Qualifiers: Hypertension type: essential hypertension Qualified Code(s): I10 - Essential (primary) hypertension Hospital course: Ms. Martinez is a 82 year old female with past medical history of dementia, hypertension and depression who presents after mechanical fall. Per report, her Sister in law was helping her stand when she lost control and patient fell b ackward. She denies any lightheadedness, dizziness, or chest pain before fall. Since then she reports mid back pain. Does not take a blood thinner aside from aspirin. Denies loss of consciousness. Denies hitting her head. Denies headache, neck pain. reports that patient is unsteady on her feet and has a tendency to fall backward if someone doesn't have good control of her. He states that patient is not confused. Patient denies any focal motor or sensory deficits. CT confirms that she has got a 40% compression fracture of T12 with a 5.5 mm posterior displacement of the superior endplate. Spine surgery was consulted and decided conservative management with pain control. PT/OT also consulted. pt pain was well-controlled. She will be discharged to rehab center today. She will continue f/u with spine surgery as scheduled. Discharge discussed with: patient, family Time spent discussing smoking cessation with patient: more than 10 minutes - Time Spent with Patient Total time spent providing and/or coordinating discharge services: Greater than 30 minutes - Discharge Medications Prescriptions: Oxycodone HCl/Acetaminophen [Percocet 7.5-325 mg Tablet] 1 each PO Q6H 4 Days #15 tablet Home Medications: ARIPiprazole [Abilify] 5 mg PO DAILY 04/06/18 [History] Aspirin [Adult Aspirin] 81 mg PO DAILY 04/06/18 [History] Citalopram Hydrobromide [Citalopram HBr] 30 mg PO DAILY 04/06/18 [History] Losartan Potassium [Cozaar] 50 mg PO DAILY 04/06/18 [History] Megestrol Acetate [Megace] 40 mg PO BID 04/06/18 [History] Pantoprazole Sodium [Protonix] 40 mg PO DAILY 04/06/18 [History] Oxycodone HCl/Acetaminophen [Percocet 7.5-325 mg Tablet] 1 each PO Q6H 4 Days #15 tablet 04/11/18 [Rx] Allergies/Adverse Reactions: Allergy/AdvReac Type Severity Reaction Status Date / Time Penicillins AdvReac See Verified 09/30/15 13:10 Comments Sulfa (Sulfonamide AdvReac See Verified 09/30/15 13:10 Antibiotics) Comments Date of admission: 04/07/18 00:09 Primary care physician: Elise Barry Consults: 04/07/18 02:14 Consult to Nutrition [CONS] Routine Comment: Consulting Provider: NUTRITION Reason for Dietary Consult: MST Score Consult to Senior Producer [CONS] Routine Reason for SW Consult: Multiple falls, possible need for placement 04/07/18 11:13 Consult to Physician [CONS] Routine Consulting Provider: Rolando Christensen Reason for Consult: T12 compression fracture, called from ED Call Completed: Yes 04/08/18 07:59 Consult to Occupational Therapy [CONS] Routine Comment: Evaluate, develop and implement POC Reason for Consult: T12 compression fracture on TLSO brace Does patient have active BEDREST order?: No Is patient medically & hemodynamically stable?: Yes Consult to Physical Therapy [CONS] Routine Comment: Evaluate, develop and implement POC Reason for Consult: T12 compression fracture on TLSO brace Does patient have active BEDREST order?: No Is patient medically & hemodynamically stable?: Yes Anticipated date of discharge: 04/11/18 - Constitutional Vitals: Temp Pulse Resp BP Pulse Ox 97.8 F 92 15 143/78 94 04/11/18 10:47 04/11/18 10:47 04/11/18 10:47 04/11/18 06:35 04/11/18 10:47 General appearance: Present: cooperative, A&O X 1 Exam: General: Alert and oriented 2 lying in bed in no acute distress Cardiovascular:Normal S1 & S2, no rubs, murmurs or gallops. No JVD. Pulse regular. Lungs:Normal breath sounds, no wheezes or crackles. Musculoskeletal: Point tenderness to palpation along the spine at the mid posterior thorax. Abdomen:Soft, non-tender, no rigidity. - Patient Status Disposition: Transfer SNF Condition: Fair Functional capacity at discharge: uses cane/walker Overall status at discharge: patient is progressing back to baseline - Discharge Instructions Follow Up With: Elise Barry MD [Primary Care Provider] - - Diet and Activity Activity: increase activity as tolerated Diet: advance to your usual diet
--- NOTE | 2018-04-11 16:16 | Physician Discharge Referral ---
ExtendedCare Referral Info Provider in Charge after Transfer: Other Institutional Level of Care: Skilled - Diagnosis (1) Depression Priority: Secondary Status: Chronic (2) Mild cognitive impairment Priority: Secondary Status: Chronic (3) Thoracic compression fracture Priority: Primary Status: Acute (4) DVT prophylaxis Priority: Primary Status: Acute (5) Hypertension Priority: Secondary Status: Chronic Prognosis: Fair Aware of Diagnosis: Patient, Family Aware of Prognosis: Patient, Family - Transfer Medications Prescriptions: Oxycodone HCl/Acetaminophen [Percocet 7.5-325 mg Tablet] 1 each PO Q6H 4 Days #15 tablet Home Medications: ARIPiprazole [Abilify] 5 mg PO DAILY 04/06/18 [History] Aspirin [Adult Aspirin] 81 mg PO DAILY 04/06/18 [History] Citalopram Hydrobromide [Citalopram HBr] 30 mg PO DAILY 04/06/18 [History] Losartan Potassium [Cozaar] 50 mg PO DAILY 04/06/18 [History] Megestrol Acetate [Megace] 40 mg PO BID 04/06/18 [History] Pantoprazole Sodium [Protonix] 40 mg PO DAILY 04/06/18 [History] Oxycodone HCl/Acetaminophen [Percocet 7.5-325 mg Tablet] 1 each PO Q6H 4 Days #15 tablet 04/11/18 [Rx] Allergies/Adverse Reactions: Allergy/AdvReac Type Severity Reaction Status Date / Time Penicillins AdvReac See Verified 09/30/15 13:10 Comments Sulfa (Sulfonamide AdvReac See Verified 09/30/15 13:10 Antibiotics) Comments - Respiratory Orders Smoking Cessation: Smoking cessation has been advised. For more information, call the [place] Tobacco Quit Line at 5-644-OHYR-NOW. - Ancillary Orders May use pressure relief devices daily prn - Advance Directives Code Status: Full Code - Mobility Orders Chair - Rehabiliation Orders Rehab Potential: Fair Rehab Orders: Evaluation for Physical Therapy, Evaluation for Occupational Therapy, Evaluation for Speech Therapy - Treatments Skin tear care topically daily PRN per policy - Diet Orders Regular CERTIFICATION: I certify that the transfer of the above named patient to an Extended Care Facility is necessary for the continuing treatment of the diagnosis listed. The above information is true and accurate reflection of patient's current condition. Confidential - Redisclosure prohibited without a patient's written consent.
== END 2018-04-11 18:37 | DRG 552 ==
LOC: EMEROOARM 18:56 → 3NENU 04-07 00:09 → SUATTDRO 04-07 00:09 → 3NENU 04-07 01:30
PROVIDERS: ATTEND Internal Medicine